=== PATIENT | male | born 1970 | race African-American/Black ===

== ENCOUNTER → 2018-10-05 | Outpatient (CLI) | payer BC ==
[~2018-10-05] MED LIST: IOHEXOL 350 MG/ML 100ML IJ ONE
[2018-10-05 10:20] VITALS: BP 129/79
[2018-10-05 11:00] VITALS: BP 118/72
== END | disposition home or self-care (01) ==
LOC: Rad HDHVI 10:16
PROVIDERS: ATTEND Internal Medicine Cardiovascular Disease
DX: I71.2 Thoracic aortic aneurysm, without rupture (principal)
CPT/HCPCS: 71275; 82565; G0463; Q9967